=== PATIENT | male | born 1995 | race Caucasian/White ===

== ENCOUNTER 2017-12-03 22:15 | Emergency (ER) | payer OTHER ==
[2017-12-03 22:39] VITALS: BP 114/74; PULSE 79; TEMP 97.7; BMI 24.3
--- NOTE | 2017-12-03 22:56 | PDOC ---
Attending Attestation - Resident Resident Name: Randolph Alvarez - ED Attending Attestation I have performed the following: I have examined & evaluated the patient, The case was reviewed & discussed with the resident, I agree w/resident's findings & plan - HPI HPI: 12/03/17 22:55 Pt comes with a tingle in the left arm; he began having this senstion while seated at his computer - Physicial Exam PE: 12/04/17 06:39 Pt's paresthesias are indicative of likely paresthesia or peripheral neuropathy in the left C-spine area. Pt sleeps on his left shoulder. He cannot recall any pther trauma or strain to the neck. He has no bony stepoffs. Pt treated with analgesics. Pt will follow with PMD. CXR is normal. EKG also normal sinus. - Medical Decision Making 12/04/17 06:41 Home wtih PMD followup 12/04/17 06:41 NSAIDS for the pain. Take with food. <Karina Mcgarry - Last Filed: 12/04/17 06:41> Heart Score/ECG Review - ECG Intrepretation Comment:: 12/04/17 00:13 Completed @23:31:10 Sinus Bradycardia Otherwise normal ECG Vent. rate 59 bpm MN interval 124 ms QRS duration 96 ms <Javi Noyola - Last Filed: 12/04/17 00:13>
--- NOTE | 2017-12-03 23:01 | PDOC ---
History of Present Illness - General History Source: Patient Exam Limitations: No Limitations - History of Present Illness Initial Comments: 12/03/17 22:54 Patient is a 22M with no significant medical history here today complaining of a "tingling" in his left arm starting 30 minutes prior to hospital arrival. He says that he was working on his computer when it started. He denies shoulder and elbow compression. He also reports that the symptoms in his arms have resolved. Patient states that he now has some chest tingling now. Denies chest pain, shortness of breath, nausea, vomiting, fevers and chills. Patient has had extensive workup for these symptoms before, all of which were negative. <Randolph Alvarez - Last Filed: 12/04/17 00:06> <Karina Mcgarry - Last Filed: 12/04/17 00:34> - General Chief Complaint: Head/Neck problem Stated Complaint: NUmbness Time Seen by Provider: 12/03/17 22:39 Past History - Past Medical History Anemia: No Asthma: No Cancer: No Cardiac Disorders: No (recurrent chest pain, had echo this week) CVA: No COPD: No CHF: No Dementia: No Diabetes: No GI Disorders: No Disorders: No HTN: No Hypercholesterolemia: No Liver Disease: No Seizures: No Thyroid Disease: No - Surgical History Abdominal Surgery: No Appendectomy: No Cardiac Surgery: No Cholecystectomy: No Lung Surgery: No Neurologic Surgery: No Orthopedic Surgery: No - Immunization History Immunization Up to Date: Yes - Suicide/Smoking/Psychosocial Hx Smoking History: Never smoked Have you smoked in the past 12 months: No Number of Cigarettes Smoked Daily: 0 Cigars Per Day: 0 Information on smoking cessation initiated: No Hx Alcohol Use: No Drug/Substance Use Hx: No Substance Use Type: None Hx Substance Use Treatment: No <Randolph Alvarez - Last Filed: 12/04/17 00:06> <Karina Mcgarry - Last Filed: 12/04/17 00:34> - Past Medical History Allergies/Adverse Reactions: Allergies Allergy/AdvReac Type Severity Reaction Status Date / Time No Known Allergies Allergy Verified 12/03/17 22:38 Home Medications: Ambulatory Orders Ranitidine HCl [Zantac] 150 mg PO BID 09/02/15 hydrOXYzine PAMOATE [Vistaril -] 1 tab PO PRN PRN 09/03/15 Review of Systems - Review of Systems Comments:: 12/03/17 23:01 GENERAL/CONSTITUTIONAL: No fever or chills. No weakness. HEAD, EYES, EARS, NOSE AND THROAT: No change in vision. No ear pain or discharge. No sore throat. CARDIOVASCULAR: No chest pain or shortness of breath RESPIRATORY: No cough, wheezing, or hemoptysis. GASTROINTESTINAL: No nausea, vomiting, diarrhea or constipation. GENITOURINARY: No dysuria, frequency, or change in urination. MUSCULOSKELETAL: No joint or muscle swelling or pain. No neck or back pain. SKIN: No rash NEUROLOGIC: No headache, vertigo, loss of consciousness. Positive for parathesias. ENDOCRINE: No increased thirst. No abnormal weight change ALLERGIC/IMMUNOLOGIC: No hives or skin allergy. <Randolph Alvarez - Last Filed: 12/04/17 00:06> *Physical Exam - Vital Signs Last Vital Signs Temp Pulse Resp BP Pulse Ox 97.7 F 79 16 114/74 100 12/03/17 22:37 12/03/17 22:37 12/03/17 22:37 12/03/17 22:37 12/03/17 22:37 - Physical Exam Comments: 12/03/17 23:01 GENERAL: Awake, alert, and fully oriented, in no acute distress HEAD: No signs of trauma, normocephalic, atraumatic EYES: PERRLA, EOMI, sclera anicteric, conjunctiva clear, dilated pupils ENT: Auricles normal inspection, hearing grossly normal, nares patent, oropharynx clear without exudates. Moist mucosa NECK: Normal ROM, supple, no lymphadenopathy, JVD, or masses LUNGS: No distress, speaks full sentences, clear to auscultation bilaterally HEART: Regular rate and rhythm, normal S1 and S2, no murmurs, rubs or gallops, peripheral pulses normal and equal bilaterally. ABDOMEN: Soft, nontender, normoactive bowel sounds. No guarding, no rebound. No masses EXTREMITIES: Normal inspection, Normal range of motion, no edema. No clubbing or cyanosis. NEUROLOGICAL: Cranial nerves II through XII grossly intact. Normal speech, normal gait, no focal sensorimotor deficits, no ataxia, no cerebellar signs SKIN: Warm, Dry, normal turgor, no rashes or lesions noted. <Randolph Alvarez - Last Filed: 12/04/17 00:06> - Vital Signs Last Vital Signs Temp Pulse Resp BP Pulse Ox 97.7 F 79 16 114/74 100 12/03/17 22:37 12/03/17 22:37 12/03/17 22:37 12/03/17 22:37 12/03/17 22:37 <Karina Mcgarry - Last Filed: 12/04/17 00:34> ED Treatment Course - RADIOLOGY Radiology Studies Ordered: Category Date Time Status CHEST PA & LAT [RAD] Stat Radiology 12/03/17 22:50 Ordered <Randolph Alvarez - Last Filed: 12/04/17 00:06> Medical Decision Making - Medical Decision Making 12/03/17 23:01 Patient is 22M with no significant history here today with chest discomfort. Vital signs stable and normal. Suspect anxiety with possible drug use. Will evaluate further with EKG and CXR, likely discharge. 12/04/17 00:06 CXR shows sinus bradycardia with rate of 59. No st elevations/depressions. Normal AR/QTc/QRS intervals. No t wave abnormalities. <Randolph Alvarez - Last Filed: 12/04/17 00:06> *DC/Admit/Observation/Transfer - Discharge Dispostion Decision to Admit order: No <Randolph Alvarez - Last Filed: 12/04/17 00:06> <Karina Mcgarry - Last Filed: 12/04/17 00:34> Diagnosis at time of Disposition: Arm paresthesia, left, Peripheral neuropathic pain - Discharge Dispostion Disposition: HOME Condition at time of disposition: Improved - Referrals Referrals: ON STAFF,NOT [Non Staff, Medical] - - Patient Instructions Printed Discharge Instructions: DI for Numbness/tingling Additional Instructions: Please return if you have any new, worsening or concerning symptoms. Please follow up with your primary care physician next week. - Post Discharge Activity Forms/Work/School Notes: Back to School
--- NOTE | 2017-12-04 09:20 | EKG ---
Test Reason : Blood Pressure : / mmHG Vent. Rate : 059 BPM Atrial Rate : 059 BPM P-R Int : 124 ms QRS Dur : 096 ms QT Int : 406 ms P-R-T Axes : 028 051 037 degrees QTc Int : 401 ms SINUS BRADYCARDIA OTHERWISE NORMAL ECG WHEN COMPARED WITH ECG OF 21-JUL-2015 06:54, NO SIGNIFICANT CHANGE WAS FOUND Confirmed by LOCO OCONNELL MD ([id number]) on 12/04/2017 9:20:19 AM Referred By: Confirmed By:LOCO OCONNELL MD
== END 2017-12-04 01:11 | disposition home or self-care (01) ==
LOC: JER 22:15 → SUPCPDRO 22:15 → JER 12-04 01:11
DX: R20.2 Paresthesia of skin (principal); G58.8 Other specified mononeuropathies
CPT/HCPCS: 71046-TC-FY; 93005; 93010; 99281-25

== ENCOUNTER 2018-04-24 18:36 | Emergency (ER) | payer OTHER ==
[2018-04-24 18:40] VITALS: BP 124/52; PULSE 74; TEMP 98; BMI 25.8
[2018-04-24] MEDS ORDERED: KETOROLAC TROMETHAMINE 30 MG/1 ML VIAL IM ONE (19:01)
[2018-04-24 19:20] LABS: BASO % 0.5 % (0-2.0); EOS % 2.3 % (0-4.5); HEMATOCRIT 47.7 % (35.4-49); HEMOGLOBIN 15.9 GM/dL (11.7-16.9); MCH 29.5 pg (25.7-33.7); MCHC 33.2 g/dl (32.0-35.9); MEAN CELL VOLUME 88.8 fl (80-96); MEAN PLT VOLUME 9.5 fl (7.5-11.1); MONO % 8.7 % (3.8-10.2); NEUT % 63.5 % (42.8-82.8); PLATELET COUNT 163 K/MM3 (134-434); RBC 5.37 M/mm3 (4.00-5.60); RDW 12.7 % (11.9-15.9); WHITE BLOOD COUNT 6.7 K/mm3 (4.0-10.0)
[2018-04-24 19:21] LABS: URINE APPEARANCE CLEAR; URINE BILIRUBIN NEGATIVE (<2.0 mg/dL); URINE COLOR LTYELLOW; URINE GLUCOSE (UA) NEGATIVE (NEGATIVE); URINE KETONE NEGATIVE (NEGATIVE); URINE LEUK ESTERASE NEGATIVE (NEGATIVE); URINE NITRITE NEGATIVE (NEGATIVE); URINE PROTEIN NEGATIVE (NEGATIVE); URINE UROBILINOGEN NEGATIVE mg/dL (0.2-1.0)
[2018-04-24 19:40] LABS: ANION GAP 10 MMOL/L (8-16); BLOOD UREA NITROGEN 10 mg/dL (7-18); CALCIUM 9.7 mg/dL (8.5-10.1); CHLORIDE 102 mmol/L (98-107); CO2 29 mmol/L (21-32); GLUCOSE,RANDOM 75 mg/dL (74-106); POTASSIUM 3.9 mmol/L (3.5-5.1); SODIUM 141 mmol/L (136-145)
--- NOTE | 2018-04-24 19:56 | PDOC ---
History of Present Illness - General Chief Complaint: Pain Stated Complaint: BACK PAIN Time Seen by Provider: 04/24/18 18:44 History Source: Patient Exam Limitations: No Limitations - History of Present Illness Initial Comments: 04/24/18 19:02 CHIEF COMPLAINT: Lower back pain HISTORY OF PRESENT ILLNESS: 22-year-old male denies medical history presents emergency departments with right-sided lower back pain for the past 4 days. Patient states he was sitting down and eating at the time that the pain and started. He denies any trauma. Patient states that pain is nonradiating and he denies any numbness or tingling distal to pain. Patient denies any incontinence of bladder or bowel, urinary retention, saddle anesthesia, foot drop, dysuria, hematuria. REVIEW OF SYSTEMS: GENERAL: Afebrile, denies any weakness RESPIRATORY: No cough, wheezing, or hemoptysis. CARDIAC: No chest pain or shortness of breath MUSCULOSKELETAL: Pain to right sided lower back. No point tenderness. SKIN : No erythema, no bruising, no deformity. GI/: Denies any abdominal pain, no urinary difficulty, incontinence or urinary retention. RECTAL: Denies any difficulty this A.m. NEUROLOGICAL: Denies any numbness or tingling. No neurosensory deficits. PHYSICAL EXAM: GENERAL: The patient is awake, alert, and fully oriented, in no acute distress. RESPIRATORY: Lungs clear bilaterally, no rhonchi wheezes or crackles CARDIAC: S1-S2 audible, no murmur rub or gallop MUSCULOSKELETAL: Pain to right sided lower back, nonradiating, no tingling or sensory deficit. Less than 2 second cap refill, +4 popliteal and pedal pulses. GI/: Abdomen soft, nontender, nondistended. No rebound tenderness. No masses palpable. MUSCULOSKELETAL: No spinal point tenderness. Normal reflexive and no deficits to sensation or strength. RECTAL: Deferred patient with no neurological findings SKIN: Warm, Dry, normal turgor, no erythema, no edema no bruising. Past History - Past Medical History Allergies/Adverse Reactions: Allergies Allergy/AdvReac Type Severity Reaction Status Date / Time No Known Allergies Allergy Verified 04/24/18 18:40 Home Medications: Ambulatory Orders NK [No Known Home Medication] 04/24/18 Anemia: No Asthma: No Cancer: No Cardiac Disorders: No (recurrent chest pain, had echo this week) CVA: No COPD: No CHF: No Dementia: No Diabetes: No GI Disorders: No Disorders: No HTN: No Hypercholesterolemia: No Liver Disease: No Seizures: No Thyroid Disease: No - Surgical History Abdominal Surgery: No Appendectomy: No Cardiac Surgery: No Cholecystectomy: No Lung Surgery: No Neurologic Surgery: No Orthopedic Surgery: No - Immunization History Immunization Up to Date: Yes - Suicide/Smoking/Psychosocial Hx Smoking History: Never smoked Have you smoked in the past 12 months: No Number of Cigarettes Smoked Daily: 0 Cigars Per Day: 0 Hx Alcohol Use: No Drug/Substance Use Hx: No Substance Use Type: None Hx Substance Use Treatment: No *Physical Exam - Vital Signs Last Vital Signs Temp Pulse Resp BP Pulse Ox 98 F 74 18 124/52 L 99 04/24/18 18:38 04/24/18 18:38 04/24/18 18:38 04/24/18 18:38 04/24/18 18:38 ED Treatment Course - LABORATORY CBC & Chemistry Diagram: 04/24/18 19:06 04/24/18 19:06 Medical Decision Making - Medical Decision Making 04/24/18 19:56 A/P: 22-year-old male denies medical history with right-sided lower back pain for 4 days No CVA tenderness No palpable muscle spasms noted Able to perform straight leg raises without difficulty Abdomen soft nontender nondistended UA, urine culture, labs, reassess Patient is refusing pain medication at this time. 04/24/18 20:06 Urinalysis and BMP are unremarkable. Patient aware of laboratory findings and agrees with plan to discharge follow-up at his regular doctor. *DC/Admit/Observation/Transfer Diagnosis at time of Disposition: Pain in lower back Qualifiers: Chronicity: acute Back pain laterality: right Sciatica presence: without sciatica Qualified Code(s): M54.5 - Low back pain - Discharge Dispostion Disposition: HOME Condition at time of disposition: Stable Decision to Admit order: No - Referrals Referrals: Ami Li MD [Primary Care Provider] - - Patient Instructions Additional Instructions: Take Tylenol or Motrin as needed for pain. Follow manufacturers instructions for appropriate dosage. Warm moist heat applied to your back may help alleviate pain. Return to emergency department for discoloration of the foot, numbness or tingling to the foot, worsening pain, or any other concerns. Thank you very much for choosing us to provide your emergent healthcare needs. - Post Discharge Activity
== END 2018-04-24 20:40 | disposition home or self-care (01) ==
LOC: JERFT 18:36
PROC: 3E0233Z Introduction of Anti-inflammatory into Muscle, Percutaneous Approach (ICD-10-PCS; principal; 2018-04-24)
DX: M54.5 Low back pain (principal)
CPT/HCPCS: 36415; 80048; 81003; 85025; 87086; 96372; 99281-25

== ENCOUNTER 2018-11-07 21:08 | Emergency (ER) | payer OTHER ==
[2018-11-07] MEDS ORDERED: SODIUM CHLORIDE 1,000 ML IV STA (21:14)
--- NOTE | 2018-11-07 21:14 | PDOC ---
Rapid Medical Evaluation Time Seen by Provider: 11/07/18 21:12 Medical Evaluation: Allergies Allergy/AdvReac Type Severity Reaction Status Date / Time No Known Allergies Allergy Verified 04/24/18 18:40 11/07/18 21:12 I have performed a brief in-person evaluation of this patient. The patient presents with a chief complaint of: abdominal pain with nausea and green diarrhea Pertinent physical exam findings: abd SNTND. No palpable masses I have ordered the following: labs, urine, IVF The patient will proceed to the ED for further evaluation. Discharge Disposition - Diagnosis Abdominal pain - Referrals - Patient Instructions - Post Discharge Activity
[2018-11-07 21:15] VITALS: BP 127/60; PULSE 83; TEMP 98.2; BMI 26.8
[2018-11-07 21:34] LABS: BASO % 0.4 % (0-2.0); EOS % 1.1 % (0-4.5); HEMATOCRIT 45.4 % (35.4-49); HEMOGLOBIN 15.4 GM/dL (11.7-16.9); LYMPH % 28.2 % (8-40); MCH 30.4 pg (25.7-33.7); MEAN CELL VOLUME 89.5 fl (80-96); MEAN PLT VOLUME 10.5 fl (7.5-11.1); MONO % 6.1 % (3.8-10.2); NEUT % 64.2 % (42.8-82.8); PLATELET COUNT 161 K/MM3 (134-434); RBC 5.08 M/mm3 (4.00-5.60); RDW 12.4 % (11.9-15.9); WHITE BLOOD COUNT 8.5 K/mm3 (4.0-10.0)
[2018-11-07 22:04] LABS: ALBUMIN 4.6 g/dl (3.4-5.0); ALK PHOS 62 U/L (45-117); ANION GAP 5 MMOL/L (8-16); BILIRUBIN,TOTAL 0.9 mg/dL (0.2-1); BLOOD UREA NITROGEN 9 mg/dL (7-18); CALCIUM 8.8 mg/dL (8.5-10.1); CHLORIDE 106 mmol/L (98-107); CO2 28 mmol/L (21-32); GLUCOSE,RANDOM 92 mg/dL (74-106); LIPASE 65 U/L (73-393); POTASSIUM 3.7 mmol/L (3.5-5.1); SGOT/AST 15 U/L (15-37); SGPT/ALT 16 U/L (13-61); SODIUM 140 mmol/L (136-145); TOT PROT 7.8 g/dl (6.4-8.2)
[2018-11-07 22:32] LABS: PH,URINE 6.5 (5.0-8.0); URINE APPEARANCE CLEAR; URINE BILIRUBIN NEGATIVE (NEGATIVE); URINE COLOR YELLOW; URINE GLUCOSE (UA) NEGATIVE (NEGATIVE); URINE KETONE NEGATIVE (NEGATIVE); URINE LEUK ESTERASE NEGATIVE (NEGATIVE); URINE NITRITE NEGATIVE (NEGATIVE); URINE PROTEIN NEGATIVE (NEGATIVE); URINE UROBILINOGEN 0.2 mg/dL (0.2-1.0)
--- NOTE | 2018-11-07 23:14 | PDOC ---
History of Present Illness - General Chief Complaint: Pain Stated Complaint: ABD PAIN AND FEVER Time Seen by Provider: 11/07/18 21:12 History Source: Patient Exam Limitations: No Limitations Past History - Past Medical History Allergies/Adverse Reactions: Allergies Allergy/AdvReac Type Severity Reaction Status Date / Time No Known Allergies Allergy Verified 11/07/18 21:15 Home Medications: Ambulatory Orders NK [No Known Home Medication] 04/24/18 Anemia: No Asthma: No Cancer: No Cardiac Disorders: No (recurrent chest pain, had echo this week) CVA: No COPD: No CHF: No Dementia: No Diabetes: No GI Disorders: No Disorders: No HTN: No Hypercholesterolemia: No Liver Disease: No Seizures: No Thyroid Disease: No - Surgical History Abdominal Surgery: No Appendectomy: No Cardiac Surgery: No Cholecystectomy: No Lung Surgery: No Neurologic Surgery: No Orthopedic Surgery: No - Immunization History Immunization Up to Date: Yes - Suicide/Smoking/Psychosocial Hx Smoking History: Never smoked Have you smoked in the past 12 months: No Number of Cigarettes Smoked Daily: 0 Cigars Per Day: 0 Hx Alcohol Use: No Drug/Substance Use Hx: No Substance Use Type: None Hx Substance Use Treatment: No *Physical Exam - Vital Signs Last Vital Signs Temp Pulse Resp BP Pulse Ox 98.2 F 83 18 127/60 100 11/07/18 21:12 11/07/18 21:12 11/07/18 21:12 11/07/18 21:12 11/07/18 21:12 - Physical Exam General Appearance: No: Apparent Distress Respiratory/Chest: positive: Lungs Clear, Normal Breath Sounds. negative: Respiratory Distress Cardiovascular: positive: Regular Rhythm, Regular Rate, S1, S2. negative: Murmur Gastrointestinal/Abdominal: positive: Normal Bowel Sounds, Soft. negative: Tender, Distended, Guarding, Rebound Musculoskeletal: negative: CVA Tenderness Neurologic: positive: Fully Oriented, Alert, Normal Mood/Affect ED Treatment Course - LABORATORY CBC & Chemistry Diagram: 11/07/18 21:22 11/07/18 21:22 - ADDITIONAL ORDERS Additional order review: Laboratory Results 11/07/18 11/07/18 22:11 21:22 Sodium 140 Potassium 3.7 Chloride 106 Carbon Dioxide 28 Anion Gap 5 L BUN 9 Creatinine 1.0 Creat Clearance w eGFR 93.44 Random Glucose 92 Calcium 8.8 Total Bilirubin 0.9 AST 15 ALT 16 Alkaline Phosphatase 62 Total Protein 7.8 Albumin 4.6 Lipase 65 L Urine Color Yellow Urine Appearance Clear Urine pH 6.5 Ur Specific [place] 1.008 L Urine Protein Negative Urine Glucose (UA) Negative Urine Ketones Negative Urine Blood Negative Urine Nitrite Negative Urine Bilirubin Negative Urine Urobilinogen 0.2 Ur Leukocyte Esterase Negative 11/07/18 21:22 RBC 5.08 MCV 89.5 MCHC 34.0 RDW 12.4 MPV 10.5 D Neutrophils % 64.2 Lymphocytes % 28.2 Monocytes % 6.1 Eosinophils % 1.1 Basophils % 0.4 - Medications Given in the ED: ED Medications Discontinued Medications Generic Name Dose Route Start Last Admin Trade Name Freq PRN Reason Stop Dose Admin Sodium Chloride 1,000 mls @ 1,000 mls/hr 11/07/18 21:14 11/07/18 22:34 Normal Saline - IV 11/07/18 22:13 1,000 mls/hr ASDIR STA Administration Medical Decision Making - Medical Decision Making 22 y/o M with no sig pmh presents with feeling gassy from 2 days ago and then yesterday, awoke in middle of night with generalized abdominal pain along with 2 episodes of watery diarrhea. Today, was feeling a bit better but now feeling a bit more constipated. However, later again had some abdominal pain along with mild nausea, chills, and low grade fever (temp was 100 at home). Denies fever, sob, cp, vomiting, urinary complaints. Did not take any antipyretics today. Saw his PCP today who prescribed meds for nausea and acidity; he was told he likely had stomach bug. Patient has not tried taking any of those meds yet, but took Gas X which helped a bit with symptoms. Labs reviewed and unremarkable Patient appears comfortable; not suspicious for acute abdominal pathology Likely viral gastroenteritis Stable for dc 11/07/18 22:54 *DC/Admit/Observation/Transfer Diagnosis at time of Disposition: Viral gastroenteritis - Discharge Dispostion Disposition: HOME Condition at time of disposition: Improved Decision to Admit order: No - Referrals Referrals: Ami Li MD [Primary Care Provider] - 2 Days - Patient Instructions Printed Discharge Instructions: DI for Viral Gastroenteritis -- Adult Additional Instructions: Thank you for choosing [facility]. It was a pleasure taking care of you. Your blood work was unremarkable. Likely this is stomach bug Recommend, rest, plenty of hydration (at least 2L of water daily) Eat light food like bananas, rice, applesauce, toast, plain yogurt Follow-up with your doctor in 2-3 days Return to the Emergency Department if your symptoms worsen or persist or have other concerning symptoms. - Post Discharge Activity
== END 2018-11-08 00:05 | disposition home or self-care (01) ==
LOC: JER 21:08
PROC: 3E0337Z Introduction of Electrolytic and Water Balance Substance into Peripheral Vein, Percutaneous Approach (ICD-10-PCS; principal; 2018-11-07)
DX: A08.4 Viral intestinal infection, unspecified (principal); B97.89 Other viral agents as the cause of diseases classified elsewhere
CPT/HCPCS: 36415; 80053; 81003; 83690; 85025; 96360; 99282-25; J7030

== ENCOUNTER 2018-11-12 11:49 | Emergency (ER) | payer OTHER ==
[2018-11-12 11:56] VITALS: BP 112/60; PULSE 72; TEMP 98; BMI 26.6
--- NOTE | 2018-11-12 12:36 | PDOC ---
History of Present Illness - General Chief Complaint: Pain Stated Complaint: ABD PAIN Time Seen by Provider: 11/12/18 12:30 - History of Present Illness Initial Comments: 11/12/18 12:48 Mr. Barnhart is a 22 yo male w/ no significant pmh who presents for evaluation of 1 week history of nausea with diarrhea and abdominal pain. Patient was evaluated on 11/07 for same symptoms and discharged home on symptomatic medications. Patient represents as abdominal pain (midline, non-radiating) has continued and his diarrhea has progressed to mild constipation. Patient reports last BM was yesterday morning and small. No other complaints at this time. The patient denies chest pain, shortness of breath, headache and dizziness. Denies fever, chills, and vomit. Denies dysuria, frequency, urgency and hematuria. Past History - Past Medical History Allergies/Adverse Reactions: Allergies Allergy/AdvReac Type Severity Reaction Status Date / Time No Known Allergies Allergy Verified 11/12/18 11:56 Home Medications: Ambulatory Orders NK [No Known Home Medication] 04/24/18 Anemia: No Asthma: No Cancer: No Cardiac Disorders: No (recurrent chest pain, had echo this week) CVA: No COPD: No CHF: No Dementia: No Diabetes: No GI Disorders: No Disorders: No HTN: No Hypercholesterolemia: No Liver Disease: No Seizures: No Thyroid Disease: No - Surgical History Abdominal Surgery: No Appendectomy: No Cardiac Surgery: No Cholecystectomy: No Lung Surgery: No Neurologic Surgery: No Orthopedic Surgery: No - Immunization History Immunization Up to Date: Yes - Suicide/Smoking/Psychosocial Hx Smoking History: Never smoked Have you smoked in the past 12 months: No Number of Cigarettes Smoked Daily: 0 Cigars Per Day: 0 Hx Alcohol Use: No Drug/Substance Use Hx: No Substance Use Type: None Hx Substance Use Treatment: No Review of Systems - Review of Systems Comments:: 11/12/18 12:51 GENERAL/CONSTITUTIONAL: No fever or chills. No weakness. HEAD, EYES, EARS, NOSE AND THROAT: No change in vision. No ear pain or discharge. No sore throat. CARDIOVASCULAR: No chest pain or shortness of breath RESPIRATORY: No cough, wheezing, or hemoptysis. GASTROINTESTINAL: +Nausea/diarrhea/constipation as described. Mild midline abdominal pain. No vomiting. GENITOURINARY: No dysuria, frequency, or change in urination. MUSCULOSKELETAL: No joint or muscle swelling or pain. No neck or back pain. SKIN: No rash NEUROLOGIC: No headache, vertigo, loss of consciousness, or change in strength/ sensation. ENDOCRINE: No increased thirst. No abnormal weight change HEMATOLOGIC/LYMPHATIC: No anemia, easy bleeding, or history of blood clots. ALLERGIC/IMMUNOLOGIC: No hives or skin allergy. *Physical Exam - Vital Signs Last Vital Signs Temp Pulse Resp BP Pulse Ox 98 F 72 18 112/60 100 11/12/18 11:53 11/12/18 11:53 11/12/18 11:53 11/12/18 11:53 11/12/18 11:53 - Physical Exam Comments: 11/12/18 12:51 GENERAL: Awake, alert, and fully oriented, in no acute distress HEAD: No signs of trauma, normocephalic, atraumatic EYES: PERRLA, EOMI, sclera anicteric, conjunctiva clear ENT: Auricles normal inspection, hearing grossly normal, nares patent, oropharynx clear without exudates. Moist mucosa NECK: Normal ROM, supple, no lymphadenopathy, JVD, or masses LUNGS: No distress, speaks full sentences, clear to auscultation bilaterally HEART: Regular rate and rhythm, normal S1 and S2, no murmurs, rubs or gallops, peripheral pulses normal and equal bilaterally. ABDOMEN: +Mild umbilical TTP. Soft, normoactive bowel sounds. No guarding, no rebound. No masses EXTREMITIES: Normal inspection, Normal range of motion, no edema. No clubbing or cyanosis. NEUROLOGICAL: Cranial nerves II through XII grossly intact. Normal speech, normal gait, no focal sensorimotor deficits SKIN: Warm, Dry, normal turgor, no rashes or lesions noted. ED Treatment Course - LABORATORY CBC & Chemistry Diagram: 11/12/18 13:17 11/12/18 13:17 Medical Decision Making - Medical Decision Making 11/12/18 14:54 Mr. Barnhart is a 22 yo male w/ no significant pmh who presents for evaluation of symptoms concerning for gastritis vs. viral illness vs. acute abdominal pathology. Patient evaluated with labs as below as well as CT Abd/Pelvis. Labs grossly wnl. CT negative. No concern for acute process at this time. Patient given symptomatic relief with fluids, pepcid, maalox, hyoscyamine. Patient reporting generalized improvement. Discharging to home. Laboratory Results - last 24 hr 11/12/18 11/12/18 13:17 13:17 WBC 6.1 RBC 5.55 Hgb 16.9 Hct 49.9 H MCV 89.9 MCH 30.3 MCHC 33.7 RDW 12.4 Plt Count 154 MPV 10.2 Absolute Neuts (auto) 4.1 Neutrophils % 67.4 Lymphocytes % 23.7 Monocytes % 6.3 Eosinophils % 2.2 D Basophils % 0.4 Nucleated RBC % 0 Sodium 137 Potassium 3.9 Chloride 103 Carbon Dioxide 29 Anion Gap 5 L BUN 9 Creatinine 0.9 Creat Clearance w eGFR 105.52 Random Glucose 82 Calcium 9.8 Total Bilirubin 1.5 H AST 14 L ALT 19 Alkaline Phosphatase 66 Total Protein 8.8 H Albumin 5.0 *DC/Admit/Observation/Transfer Diagnosis at time of Disposition: Abdominal pain Qualifiers: Abdominal location: unspecified location Qualified Code(s): R10.9 - Unspecified abdominal pain - Discharge Dispostion Disposition: HOME - Referrals Referrals: Ami Li MD [Primary Care Provider] - - Patient Instructions Printed Discharge Instructions: DI for Viral Gastroenteritis -- Adult Additional Instructions: You were evaluated today in the ER for your symptoms. We performed laboratory analysis as well as CT scan with no concerning findings. We believe you are safe for discharge home. Please follow-up with primary care provider early next week for evaluation. You may take over the counter tylenol per package instructions for pain control. Return to ER if any fever, chills, inability to eat or drink, change in pain, or other concerning symptoms. - Post Discharge Activity
[2018-11-12] MEDS ORDERED: SODIUM CHLORIDE 1,000 ML IV STA (12:44)
[2018-11-12] MEDS ORDERED: FAMOTIDINE 20 MG/50 ML IVPB 20 MG/50 ML MG IVPB ONE (12:45)
[2018-11-12] MEDS ORDERED: MAG HYDROX/AL HYDROX/SIMETH 30 ML UNIT-DOSE CUP PO ONE (12:45)
[2018-11-12] MEDS ORDERED: HYOSCYAMINE SULFATE 0.375 MG TAB.ER.12H PO ONE (12:45)
[2018-11-12 13:25] LABS: BASO % 0.4 % (0-2.0); EOS % 2.2 % (0-4.5); HEMATOCRIT 49.9 % (35.4-49); HEMOGLOBIN 16.9 GM/dL (11.7-16.9); LYMPH % 23.7 % (8-40); MCH 30.3 pg (25.7-33.7); MCHC 33.7 g/dl (32.0-35.9); MEAN CELL VOLUME 89.9 fl (80-96); MEAN PLT VOLUME 10.2 fl (7.5-11.1); MONO % 6.3 % (3.8-10.2); NEUT % 67.4 % (42.8-82.8); PLATELET COUNT 154 K/MM3 (134-434); RBC 5.55 M/mm3 (4.00-5.60); RDW 12.4 % (11.9-15.9); WHITE BLOOD COUNT 6.1 K/mm3 (4.0-10.0)
[2018-11-12 13:51] LABS: ALK PHOS 66 U/L (45-117); ANION GAP 5 MMOL/L (8-16); BILIRUBIN,TOTAL 1.5 mg/dL (0.2-1); BLOOD UREA NITROGEN 9 mg/dL (7-18); CALCIUM 9.8 mg/dL (8.5-10.1); CHLORIDE 103 mmol/L (98-107); CO2 29 mmol/L (21-32); CREATININE 0.9 mg/dL (0.55-1.3); GLUCOSE,RANDOM 82 mg/dL (74-106); POTASSIUM 3.9 mmol/L (3.5-5.1); SGOT/AST 14 U/L (15-37); SGPT/ALT 19 U/L (13-61); SODIUM 137 mmol/L (136-145); TOT PROT 8.8 g/dl (6.4-8.2)
--- NOTE | 2018-11-12 15:19 | PDOC ---
Documentation entered by Juan Miguel Granger SCRIBE, acting as scribe for Mayelin Bedolla MD. Mayelin Bedolla MD: This documentation has been prepared by the Bárbara ozuna Nirvannie, SCRIBE, under my direction and personally reviewed by me in its entirety. I confirm that the documentation accurately reflects all work, treatment, procedures, and medical decision making performed by me. Attending Attestation - Resident Resident Name: Emile Steven - ED Attending Attestation I have performed the following: I have examined & evaluated the patient, The case was reviewed & discussed with the resident, I agree w/resident's findings & plan - HPI HPI: 11/12/18 13:25 The patient is a 22 year old male, with no significant past medical history, who presents to the emergency department with, 1 week of nausea, abdominal pain , and varying diarrhea and constipation. He describes his abdominal pain as periumbilical an right flank. Patient notes his symptoms persisting, prompting his arrival to the ED. He denies any recent fevers, chills, headache or dizziness. He denies any recent chest pain or shortness of breath. He denies any recent dysuria, frequency, urgency or hematuria. Allergies: NKDA Primary Care Physician: Dr. Li - Physicial Exam PE: 11/12/18 13:32 GENERAL: The patient is in no acute distress. ENT: Ears normal, nares patent, oropharynx clear without exudates. Moist mucous membranes. NECK: Normal range of motion LUNGS: Breath sounds equal, clear to auscultation bilaterally. No wheezes, and no crackles. HEART:Regular rate and rhythm, normal S1 and S2 without murmur, rub or gallop. ABDOMEN: Soft, lower abdominal tenderness to palpation, no involuntary guarding EXTREMITIES: Normal range of motion NEUROLOGICAL: Cranial nerves II through XII grossly intact. Normal speech. No focal neurological deficits. SKIN: Warm, Dry, normal turgor, no rashes or lesions noted. - Medical Decision Making 11/12/18 13:33 22 yo M presenting with a complaint of abdominal pain Symptoms began approximately 1 week ago She was seen in the ER and discharged, dx gastroenteritis Pt reports that he continues to have abdominal pain Low grade temp (99-100) Pt had diarrhea 6 days ago (loose stools), since then he has had pain in the abdomen No dysuria, no hematuria Will do Labs CT abd and pelvis Re assess 11/12/18 13:50 Laboratory Tests 11/12/18 13:17 WBC 6.1 Hgb 16.9 Hct 49.9 H Plt Count 154 11/12/18 15:06 Laboratory Tests 11/12/18 13:17 BUN [address] - No acute intra-abdominal pathology Will plan to discharge to home Follow up with PMD Clinical Impression: abdominal pain, initial presentation
== END 2018-11-12 15:29 | disposition home or self-care (01) ==
LOC: JER 11:49
PROC: 3E033GC Introduction of Other Therapeutic Substance into Peripheral Vein, Percutaneous Approach (ICD-10-PCS; principal; 2018-11-12)
DX: K52.9 Noninfective gastroenteritis and colitis, unspecified (principal)
CPT/HCPCS: 36415; 74177-TC; 80053; 85025; 96365; 99282-25; J7030

== ENCOUNTER 2019-01-28 16:05 | Emergency (ER) | payer OTHER ==
[2019-01-28 16:22] VITALS: BMI 26.4
[2019-01-28] MEDS ORDERED: SODIUM CHLORIDE 1,000 ML IV STA (17:20)
[2019-01-28] MEDS ORDERED: ONDANSETRON 4 MG/2 ML VIAL IVPUSH ONE (17:20)
--- NOTE | 2019-01-28 17:25 | PDOC ---
History of Present Illness - General Chief Complaint: Pain Stated Complaint: ABDOMINAL PAIN Time Seen by Provider: 01/28/19 17:09 History Source: Patient, Old Records Exam Limitations: No Limitations - History of Present Illness Travel History: No Initial Comments: 01/28/19 17:23 HISTORY OF PRESENT ILLNESS: 23-year-old male denies medical history presents emergency department for evaluation of intermittent epigastric pain, intermittent nausea and loose green stools for the past 24 hours. Patient reports the pain in his epigastric area worsens postprandially only lasts for 2- 3 minutes before spontaneously resolving. Patient reports when he had the epigastric pain yesterday at onset the pain radiated to his back once again only lasted 2-3 minutes before spontaneous resolution. Patient reports the pain is a 3/10 when it is present is currently 0/10. Patient reports this morning noted to have some loose green stools. Patient denies drinking throughout the holiday weekend and ate some rice, chicken and salmon throughout the day yesterday. Patient reports it is similar episode in October of this year which was diagnosed with gastroenteritis after having a negative CAT scan and laboratory testing. No recent travel or sick contacts. PAST MEDICAL HISTORY: Denies past medical history SURGICAL HISTORY: Denies ALLERGIES: No known drug allergies REVIEW OF SYSTEMS General/Constitutional: Denies fever or chills. Denies weakness, weight change. HEENT: Denies change in vision. Denies ear pain or discharge. Denies sore throat. Cardiovascular: Denies chest pain or shortness of breath. Respiratory: Denies cough, wheezing, or hemoptysis. Gastrointestinal: see HPI Genitourinary: Denies dysuria, frequency, or change in urination. Musculoskeletal: Denies joint or muscle swelling or pain. Denies neck or back pain. Skin and breasts: Denies rash or easy bruising. Neurologic: Denies headache, vertigo, loss of consciousness, or loss of sensation. Psychiatric: Denies depression or anxiety. Endocrine: Denies increased thirst. Denies abnormal weight change. Hematologic/Lymphatic: Denies anemia, easy bleeding, or history of blood clots. Allergic/Immunologic: Denies hives or skin allergy. Denies latex allergy. PHYSICAL EXAM General Appearance: Well-appearing, appropriately dressed. No apparent distress , no intoxication. Respiratory/Chest: Lungs CTAB. No shortness of breath, chest tenderness, respiratory distress, accessory muscle use. No crackles, rales, rhonchi, stridor , wheezing, dullness Cardiovascular: RRR. S1, S2. No JVD, murmur, bradycardia, tachycardia. Vascular Pulses: Dorsalis-Pedis (R): 2+, Dorsalis-Pedis (L): 2+ Gastrointestinal/Abdominal: Normal bowel sounds. Abdomen soft, non-distended. No tenderness or rebound tenderness. No organomegaly, pulsatile mass, guarding, hernia, hepatomegaly, splenomegaly. Lymphatic: No adenopathy, tenderness. Musculoskeletal/Extremities: Normal inspection. FROM of all extremities, normal capillary refill. Pelvis Stable. No CVA tenderness. No tenderness to extremities, pedal edema, swelling, erythema or deformity. Past History - Past Medical History Allergies/Adverse Reactions: Allergies Allergy/AdvReac Type Severity Reaction Status Date / Time No Known Allergies Allergy Verified 01/28/19 16:16 Home Medications: Ambulatory Orders Ondansetron [Zofran -] 4 mg PO TID #21 tablet 01/28/19 Anemia: No Asthma: No Cancer: No Cardiac Disorders: No (recurrent chest pain, had echo this week) CVA: No COPD: No CHF: No Dementia: No Diabetes: No GI Disorders: No Disorders: No HTN: No Hypercholesterolemia: No Liver Disease: No Seizures: No Thyroid Disease: No - Surgical History Abdominal Surgery: No Appendectomy: No Cardiac Surgery: No Cholecystectomy: No Lung Surgery: No Neurologic Surgery: No Orthopedic Surgery: No - Immunization History Immunization Up to Date: Yes - Suicide/Smoking/Psychosocial Hx Smoking History: Never smoked Have you smoked in the past 12 months: No Number of Cigarettes Smoked Daily: 0 Cigars Per Day: 0 Hx Alcohol Use: No Drug/Substance Use Hx: No Substance Use Type: None Hx Substance Use Treatment: No *Physical Exam - Vital Signs Last Vital Signs Temp Pulse Resp BP Pulse Ox 98.5 F 71 18 115/60 99 01/28/19 16:13 01/28/19 16:13 01/28/19 16:13 01/28/19 16:13 01/28/19 16:13 ED Treatment Course - LABORATORY CBC & Chemistry Diagram: 01/28/19 17:48 01/28/19 17:48 Medical Decision Making - Medical Decision Making 01/28/19 17:25 A/P: 23-year-old male with intermittent abdominal pain and loose green stools for one day Physical exam is consistent for an acute gastroenteritis. Differential diagnosis includes but is not limited to viral gastroenteritis, cholecystitis, pancreatitis, colitis, ACS, GERD Basic labs including lipase Urinalysis Normal saline 1 L IV bolus Zofran 4 mg IV now Low threshold to image pending laboratory testing. 01/28/19 19:19 CBCD WBC 10.7 K/mm3 (4.0-10.0) H 01/28/19 17:48 RBC 5.37 M/mm3 (4.00-5.60) 01/28/19 17:48 Hgb 15.8 GM/dL (11.7-16.9) 01/28/19 17:48 Hct 47.7 % (35.4-49) 01/28/19 17:48 MCV 88.8 fl (80-96) 01/28/19 17:48 MCHC 33.2 g/dl (32.0-35.9) 01/28/19 17:48 RDW 12.8 % (11.9-15.9) 01/28/19 17:48 Plt Count 169 K/MM3 (134-434) 01/28/19 17:48 MPV 10.1 fl (7.5-11.1) 01/28/19 17:48 CMP Sodium 141 mmol/L (136-145) 01/28/19 17:48 Potassium 3.9 mmol/L (3.5-5.1) 01/28/19 17:48 Chloride 105 mmol/L (98-107) 01/28/19 17:48 Carbon Dioxide 26 mmol/L (21-32) 01/28/19 17:48 Anion Gap 10 MMOL/L (8-16) 01/28/19 17:48 BUN 9.0 mg/dL (7-18) 01/28/19 17:48 Creatinine 0.9 mg/dL (0.55-1.3) 01/28/19 17:48 Calcium 9.5 mg/dL (8.5-10.1) 01/28/19 17:48 Total Bilirubin 1.1 mg/dL (0.2-1) H 01/28/19 17:48 AST 14 U/L (15-37) L 01/28/19 17:48 ALT 17 U/L (13-61) 01/28/19 17:48 Alkaline Phosphatase 60 U/L (45-117) 01/28/19 17:48 Total Protein 8.1 g/dl (6.4-8.2) 01/28/19 17:48 Albumin 4.7 g/dl (3.4-5.0) 01/28/19 17:48 Urine Test Results Urine Color Yellow 01/28/19 17:49 Urine Appearance Clear 01/28/19 17:49 Urine pH 6.0 (5.0-8.0) 01/28/19 17:49 Ur Specific [place] 1.003 (1.010-1.035) L 01/28/19 17:49 Urine Protein Negative (NEGATIVE) 01/28/19 17:49 Urine Glucose (UA) Negative (NEGATIVE) 01/28/19 17:49 Urine Ketones Negative (NEGATIVE) 01/28/19 17:49 Urine Blood Negative (NEGATIVE) 01/28/19 17:49 Urine Nitrite Negative (NEGATIVE) 01/28/19 17:49 Urine Bilirubin Negative (NEGATIVE) 01/28/19 17:49 Ur Leukocyte Esterase Negative (NEGATIVE) 01/28/19 17:49 Laboratory testing is unremarkable. Patient reports improvement in symptoms. Oral trial Discharge home if tolerates 01/28/19 20:56 Tolerating PO's. Discharge home. *DC/Admit/Observation/Transfer Diagnosis at time of Disposition: Viral gastroenteritis - Discharge Dispostion Disposition: HOME Condition at time of disposition: Fair Decision to Admit order: No - Prescriptions Prescriptions: Ondansetron [Zofran -] 4 mg PO TID #21 tablet - Referrals - Patient Instructions Additional Instructions: Rest, drink lots of fluids: Teas, water, soups Lydia ti, carbonated beverages for the bubbles May try peppermint teas Avoid heavy , spicy or fatty foods until symptoms have resolved Avoid contact with others until fevers and symptoms resolved Lots of handwashing and good hygiene Continue [id number] medications for symptomatic relief Tylenol or Motrin for fever and pain May use Zofran-one tablet dissolved on tongue as needed for nauseousness. May repeat times one every 8 hours Followup with private physician in one to 2 days as needed Return to emergency department for worsened symptoms, fevers, dehydration - Post Discharge Activity Forms/Work/School Notes: Back to Work
[2019-01-28 17:55] LABS: BASO % 0.4 % (0-2.0); EOS % 1.3 % (0-4.5); HEMATOCRIT 47.7 % (35.4-49); HEMOGLOBIN 15.8 GM/dL (11.7-16.9); LYMPH % 17.3 % (8-40); MCH 29.5 pg (25.7-33.7); MCHC 33.2 g/dl (32.0-35.9); MEAN CELL VOLUME 88.8 fl (80-96); MEAN PLT VOLUME 10.1 fl (7.5-11.1); MONO % 5.3 % (3.8-10.2); NEUT % 75.7 % (42.8-82.8); RBC 5.37 M/mm3 (4.00-5.60); RDW 12.8 % (11.9-15.9); WHITE BLOOD COUNT 10.7 K/mm3 (4.0-10.0)
[2019-01-28 18:20] VITALS: PULSE 67
[2019-01-28 18:28] LABS: URINE APPEARANCE CLEAR; URINE BILIRUBIN NEGATIVE (NEGATIVE); URINE COLOR YELLOW; URINE GLUCOSE (UA) NEGATIVE (NEGATIVE); URINE KETONE NEGATIVE (NEGATIVE); URINE LEUK ESTERASE NEGATIVE (NEGATIVE); URINE NITRITE NEGATIVE (NEGATIVE); URINE PROTEIN NEGATIVE (NEGATIVE); URINE UROBILINOGEN 0.2 mg/dL (0.2-1.0)
[2019-01-28 18:51] LABS: PLATELET COUNT 169 K/MM3 (134-434)
[2019-01-28 18:55] LABS: ALBUMIN 4.7 g/dl (3.4-5.0); BILIRUBIN,TOTAL 1.1 mg/dL (0.2-1); CALCIUM 9.5 mg/dL (8.5-10.1); CREATININE 0.9 mg/dL (0.55-1.3); POTASSIUM 3.9 mmol/L (3.5-5.1); TOT PROT 8.1 g/dl (6.4-8.2)
[2019-01-28 19:39] VITALS: BP 122/53; TEMP 98.6
--- NOTE | 2019-01-29 13:07 | EKG ---
Test Reason : Blood Pressure : / mmHG Vent. Rate : 063 BPM Atrial Rate : 063 BPM P-R Int : 146 ms QRS Dur : 092 ms QT Int : 424 ms P-R-T Axes : 051 052 051 degrees QTc Int : 433 ms NORMAL SINUS RHYTHM WITH SINUS ARRHYTHMIA NORMAL ECG WHEN COMPARED WITH ECG OF 03-DEC-2017 23:31, NO SIGNIFICANT CHANGE WAS FOUND Confirmed by MD JULIA, BEBE ([id number]) on 01/29/2019 1:07:20 PM Referred By: Confirmed By:BEBE DUMONT MD
== END 2019-01-28 21:09 | disposition home or self-care (01) ==
LOC: JER 16:05
PROC: 3E033NZ Introduction of Analgesics, Hypnotics, Sedatives into Peripheral Vein, Percutaneous Approach (ICD-10-PCS; principal; 2019-01-28)
PROC: 3E033GC Introduction of Other Therapeutic Substance into Peripheral Vein, Percutaneous Approach (ICD-10-PCS; 2019-01-28)
DX: A08.4 Viral intestinal infection, unspecified (principal); B97.89 Other viral agents as the cause of diseases classified elsewhere
CPT/HCPCS: 36415; 80053; 81003; 83690; 85025; 93005; 93010; 96361; 96374; 99284-25; J7030

== ENCOUNTER 2021-10-03 11:56 | Emergency (ER) | payer OTHER ==
[2021-10-03 12:06] VITALS: BP 131/77; PULSE 93; TEMP 98; BMI 26.6
[2021-10-03] MEDS ORDERED: DOXYCYCLINE HYCLATE 100 MG CAPSULE PO ONE ×2 (13:03→13:20)
[2021-10-03 13:35] LABS: EPI CELLS 2 /uL (0-25.1); HYALINE CASTS 0 /uL (0-3.1); PH,URINE 7.5 (5.0-8.0); URINE APPEARANCE CLEAR; URINE BACTERIA 2 /uL (0-1359); URINE BILIRUBIN NEGATIVE (NEGATIVE); URINE COLOR YELLOW; URINE GLUCOSE (UA) NEGATIVE (NEGATIVE); URINE KETONE NEGATIVE (NEGATIVE); URINE LEUK ESTERASE TRACE (NEGATIVE); URINE NITRITE NEGATIVE (NEGATIVE); URINE PROTEIN NEGATIVE (NEGATIVE); URINE RBC 6 /uL (0-23.9); URINE UROBILINOGEN 0.2 mg/dL (0.2-1.0); URINE WBC 108 /uL (0-25.8)
== END 2021-10-03 14:16 | disposition home or self-care (01) ==
LOC: JERFT 11:56
PROC: 3E0233Z Introduction of Anti-inflammatory into Muscle, Percutaneous Approach (ICD-10-PCS; principal; 2021-10-03)
DX: R30.0 Dysuria (principal)
CPT/HCPCS: 36415; 81003; 87086; 87491; 87591; 99284-25